=== PATIENT | female | born 1990 | race Caucasian/White ===

== ENCOUNTER 2017-08-25 23:08 | Emergency (ER) | payer OTHER ==
[~2017-08-25] VITALS: Ht 160 cm; Wt 63.0 kg
[2017-08-25 23:13] VITALS: Ht 160 cm; Wt 63.0 kg
[2017-08-25] MEDS ORDERED: ACETAMINOPHEN 500 MG TAB PO STA (23:47)
[2017-08-25] MEDS ORDERED: ACET500C5 PO (23:53)
[2017-08-25] MEDS ORDERED: AZIT250T94 PO (23:53)
--- NOTE | 2017-08-25 23:56 | ERD ---
ER Documentation Chief Complaint Chief Complaint ST since Wednesday; pt 11 weeks HPI 27-year-old female presents here to emergency department for complaints of sore throat for 3 days. Patient is complaining of pain upon swallowing, throbbing pain, 6/scale, as was upon swallowing. Patient denies any stridor or shortness breath. Patient is approximately 11 weeks , patient did not take any medications to help her symptoms. Patient denies any symptoms, denies any vaginal bleeding or discharge. Patient denies any abdominal pain. ROS All systems reviewed and are negative except as per history of present illness. Medications Home Meds Active Scripts Acetaminophen* (Tylophen*) 500 Mg Capsule, 1 CAP PO Q6H Y for PAIN AND OR ELEVATED TEMP, #20 CAP Prov:RUDY CHI NP 08/25/17 Azithromycin* (Zithromax*) 250 Mg Tablet, 250 MG PO .ZPACK DIRECTED, #6 TAB TAKE 500 MG (2 TABS) THE FIRST DAY THEN 250 MG (1 TAB) DAYS 2-5 Prov:RUDY CHI NP 08/25/17 Allergies Allergies: Coded Allergies: Penicillins (Verified Allergy, Unknown, 08/25/17) cephalexin (Verified Allergy, Unknown, 08/25/17) Uncoded Allergies: SULFA (Allergy, Unknown, 08/25/17) PMhx/Soc Medical and Surgical Hx: pt denies Medical Hx, pt denies Surgical Hx FmHx Family History: No coronary disease, No diabetes, No other Physical Exam Vitals Vital Signs Date Time Temp Pulse Resp B/P Pulse Ox O2 Delivery O2 Flow Rate FiO2 08/25/17 23:13 99.3 120 20 118/66 98 Physical Exam GENERAL: The patient is well developed and appropriate for usual state of health, in no apparent distress. HEENT: Atraumatic. Ears: Normal tympanic membrane, no erythema or bulging. No ear canal swelling. No ear discharge. Nose: normal nasal turbinates, no erythema or swelling. Normal nasal discharge. Throat: oropharynx erythematous with +1 tonsillar swelling and tonsillar exudates noted. No lymphadenopathy. CHEST: Clear to auscultation bilaterally. There are no rales, wheezes or rhonchi. HEART: Regular rate and rhythm. No murmurs, clicks, rubs or gallops. No S3 or S4. ABDOMEN: Soft, nontender and nondistended. Good bowel sounds. No rebound or guarding. No gross peritonitis. No gross organomegaly or masses. No Cross sign or McBurney point tenderness. BACK: No midline or flank tenderness. EXTREMITIES: Equal pulses bilaterally. There is no peripheral clubbing, cyanosis or edema. No focal swelling or erythema. Full range of motion. Grossly neurovascularly intact. NEURO: Alert and oriented. Cranial nerves 2-12 intact. Motor strength in all 4 extremities with 5/5 strength. Sensation grossly intact. Normal speech and gait. SKIN: There is no apparent rash or petechia. The skin is warm and dry. HEMATOLOGIC AND LYMPHATIC: There is no evidence of excessive bruising or lymphedema. No gross cervical, axillary, or inguinal lymphadenopathy. Results 24 hrs Current Medications Medications (Trade) Dose Ordered Sig/Víctor Route PRN Reason Start Time Stop Time Status Last Admin Dose Admin Acetaminophen (Tylenol Tab) 500 mg ONCE STAT PO 08/25/17 23:47 08/25/17 23:48 DC 08/25/17 23:55 Patient was given medication for pain here in emergency department, after treatment, patient verbalized feeling much better. Patient's pain is improved. Procedures/MDM Medical decision making: Patient symptoms is likely consistent with acute bacterial pharyngitis, most likely strep throat. Low suspicion for peritonsillar abscess, mononucleosis, no symptoms of epiglottitis, laryngitis. No oral airway obstruction noted. No symptoms of sepsis at this time. Patient appears well and is hemodynamically stable. Patient was given for azithromycin Tylenol, is advised to follow-up with primary care doctor in 2-3 days for reevaluation of symptoms. Patient is advised to do salt water gargles. Patient is advised to return to emergency department for worsening symptoms. Disposition: Home. Stable. Disclaimer: Inadvertent spelling and grammatical errors are likely due to EHR/ dictation software use and do not reflect on the overall quality of patient care. Also, please note that the electronic time recorded on this note does not necessarily reflect the actual time of the patient encounter. Departure Diagnosis: Primary Impression: Acute bacterial pharyngitis Condition: Stable Patient Instructions: Pharyngitis, Strep (Presumed) RUDY CHI NP Aug 25, 2017 23:56
== END 2017-08-26 00:03 | disposition home or self-care (01) ==
LOC: E/R 23:08 → FTE 08-26 00:03
DX: O99.511 Diseases of the respiratory system complicating pregnancy, first trimester (principal); J02.9 Acute pharyngitis, unspecified; Z3A.11 11 weeks gestation of pregnancy
CPT/HCPCS: Z7502; Z7610; 99283

== ENCOUNTER 2018-03-07 12:50 | Outpatient (CLI) | END 2018-03-07 15:40 | disposition home or self-care (01) ==

== ENCOUNTER 2018-03-08 16:18 | Inpatient (IN) | END 2018-03-11 18:18 | disposition home or self-care (01) | DRG 766 ==

== ENCOUNTER 2018-07-26 08:08 | Day surgery (SDC) | END 2018-07-26 15:25 | disposition home or self-care (01) ==

== ENCOUNTER 2019-04-17 10:34 | Emergency (ER) | payer OTHER ==
[~2019-04-17] VITALS: Ht 152.4 cm; Wt 72.6 kg
[2019-04-17 10:38] VITALS: BP 119/59; PULSE 95; RESP 18; Ht 152.4 cm; Wt 72.6 kg
[2019-04-17] MEDS ORDERED: NAPR-985 PO (11:14)
[2019-04-17] MEDS ORDERED: D-ME473S2 PO (11:14)
--- NOTE | 2019-04-17 14:06 | ERD ---
ER Documentation Chief Complaint Chief Complaint FEVER AND SORE THROAT SINCE YESTERDAY HPI 28-year-old female presenting with a sore throat and fever that started yesterday. Patient states she has a productive cough and has not taken medications. Patient has not taken her temperature with a thermometer and feels like she has a tactile fever. Has no runny nose. Denies medical problems. Allergic to penicillin and Keflex. Surgical history . Social history denies ROS All systems reviewed and are negative except as per history of present illness. Medications Home Meds Active Scripts Dextromethorphan Hb-Promethazine Hcl* (Promethazine DM* Syrup) 473 Ml Syrup, 5 ML PO Q6 PRN for COUGH, #100 ML Prov:CAROLYN SORIANO PA-C 04/17/19 Naproxen* (Naprosyn*) 500 Mg Tablet, 500 MG PO BID PRN for PAIN AND/OR INFLAMMATION, #30 TAB Prov:CAROLYN SORIANO PA-C 04/17/19 Allergies Allergies: Coded Allergies: Penicillins (Verified Allergy, Unknown, 07/26/18) Sulfa (Sulfonamide Antibiotics) (Unverified Allergy, Unknown, 07/26/18) cephalexin (Verified Allergy, Unknown, 07/26/18) PMhx/Soc History of Surgery: Yes (csection x1) Anesthesia Reaction: No Hx Neurological Disorder: No Hx Respiratory Disorders: No Hx Cardiac Disorders: No Hx Psychiatric Problems: No Hx Miscellaneous Medical Probl: No Hx Alcohol Use: No Hx Substance Use: No Hx Tobacco Use: No FmHx Family History: No diabetes, No coronary disease, No other Physical Exam Vitals Vital Signs Date Temp Pulse Resp B/P (MAP) Pulse Ox O2 O2 Flow FiO2 Time Delivery Rate 04/17/19 98.7 95 18 119/59 96 10:38 (79) Physical Exam GENERAL: The patient is well-appearing, well-nourished, in no acute distress HEENT: Atraumatic. Conjunctivae are pink. Pupils equal, round, and reactive to light. There is no scleral icterus. Tympanic membranes clear bilaterally. Oropharynx clear. NECK: C-spine is soft and supple. There is no meningismus. There is no cervical lymphadenopathy. CHEST: Clear to auscultation bilaterally. There are no rales, wheezes or rhonc hi. HEART: Regular rate and rhythm. No murmurs, clicks, rubs or gallops. Procedures/MDM MDM: 28-year-old female presenting with sore throat and runny nose. Patient has URI viral syndrome. I have low suspicion for pneumonia and I do not feel blood work or imaging is indicated. I have low suspicion for bacterial HEENT infection. Patient is discharged with supportive medications and told to follow-up with primary care within 1 to 2 days for close evaluation. All questions answered at discharge Departure Diagnosis: Primary Impression: URI (upper respiratory infection) Condition: Stable Patient Instructions: Uri, Viral, No Abx (Adult) Referrals: [facility] YOU HAVE RECEIVED A MEDICAL SCREENING EXAM AND THE RESULTS INDICATE THAT YOU DO NOT HAVE A CONDITION THAT REQUIRES URGENT TREATMENT IN THE EMERGENCY DEPARTMENT. FURTHER EVALUATION AND TREATMENT OF YOUR CONDITION CAN WAIT UNTIL YOU ARE SEEN IN YOUR DOCTORS OFFICE WITHIN THE NEXT 1-2 DAYS. IT IS YOUR RESPONSIBILITY TO MAKE AN APPOINTMENT FOR FOLOW-UP CARE. IF YOU HAVE A PRIMARY DOCTOR --you should call your primary doctor and schedule an appointment IF YOU DO NOT HAVE A PRIMARY DOCTOR YOU CAN CALL OUR PHYSICIAN REFERRAL HOTLINE AT IF YOU CAN NOT AFFORD TO SEE A PHYSICIAN YOU CAN CHOSE FROM THE FOLLOWING [facility] [address] [facility]. [facility] [place] [address] [facility] [facility] [address] [facility]. [facility] [address] [facility] [place] [address] [facility]. [facility]. [address] Additional Instructions: FOLLOW UP WITH YOUR PRIMARY CARE PHYSICIAN TOMORROW.Return to this facility if you are not improving as expected. CAROLYN SORIANO PA-C Apr 17, 2019 14:06
== END 2019-04-17 11:28 | disposition home or self-care (01) ==
LOC: FTE 10:34
DX: J06.9 Acute upper respiratory infection, unspecified (principal)
CPT/HCPCS: 99283